=== PATIENT | female | born 1960 | race Caucasian/White ===

== ENCOUNTER 2016-12-21 13:56 | Emergency (ER) | payer OTHER ==
[~2016-12-21] VITALS: Ht 152.4 cm; Wt 52.6 kg
[~2016-12-21 13:56] MED LIST: IBAN150T4 PO; LORA1TAB PO; PRO40 PO
[2016-12-21 14:01] VITALS: BP_SYST 110
[2016-12-21 15:26] LABS: BASOPHILS # (AUTO) 0.1 K/uL (0.0-0.2); BASOPHILS % (AUTO) 0.8 % (0.0-2.0); EOSINOPHILS # (AUTO) 0.1 K/uL (0.0-0.4); EOSINOPHILS % (AUTO) 0.7 % (0.0-4.0); HEMATOCRIT 43.6 % (36-48); HEMOGLOBIN 14.3 g/dL (12.0-16.0); LYMPHOCYTES # (AUTO) 2.1 K/uL (1.0-5.5); LYMPHOCYTES % (AUTO) 20.2 % (20.5-51.5); MEAN CORPUSCULAR HEMOGLOBIN 27 pg (27-31); MEAN CORPUSCULAR HGB CONC 33 % (32-36); MEAN CORPUSCULAR VOLUME 83 fL (79.0-98.0); MONOCYTES # (AUTO) 0.3 K/uL (0.0-1.0); MONOCYTES % (AUTO) 3.1 % (1.7-9.3); NEUTROPHILS # (AUTO) 7.9 K/uL (1.8-7.7); NEUTROPHILS % (AUTO) 75.2 % (40.0-70.0); PLATELET COUNT (AUTO) 334 K/uL (130-430); RED BLOOD CELL COUNT(AUTO) 5.27 MIL/uL (4.2-6.2); RED CELL DISTRIBUTION WIDTH 12.4 % (9.0-15.0); WHITE BLOOD COUNT (AUTO) 10.5 K/uL (4.8-10.8)
[2016-12-21 15:31] LABS: CALCIUM 8.4 mg/dL (8.4-11.0); CREATININE 0.7 mg/dL (0.55-1.30); POTASSIUM 3.6 mmol/L (3.5-5.1)
[2016-12-21 15:33] LABS: PROTHROMBIN TIME 11.2 SECS (9.5-12.5)
[2016-12-21 15:36] LABS: ALBUMIN 3.8 g/dL (3.4-4.8); TOTAL BILIRUBIN 0.3 mg/dL (0.0-1.0); TOTAL PROTEIN, SERUM 7.3 g/dL (6.4-8.3)
[2016-12-21] MEDS ORDERED: KETOROLAC TROMETHAMINE 30 MG VIAL IM ONE (16:15)
[2016-12-21 16:50] VITALS: BP_SYST 110
== END 2016-12-21 16:50 | disposition home or self-care (01) ==
LOC: SED 13:56
DX: S83.91XA Sprain of unspecified site of right knee, initial encounter (principal); S50.01XA Contusion of right elbow, initial encounter; S09.90XA Unspecified injury of head, initial encounter; E11.9 Type 2 diabetes mellitus without complications; Z87.442 Personal history of urinary calculi; Z91.040 Latex allergy status; Z88.1 Allergy status to other antibiotic agents; Z88.8 Allergy status to other drugs, medicaments and biological substances; W10.8XXA Fall (on) (from) other stairs and steps, initial encounter; Y93.01 Activity, walking, marching and hiking; Y92.89 Other specified places as the place of occurrence of the external cause; Y99.8 Other external cause status
CPT/HCPCS: 36415; 70450; 73080; 73560; 80053; 85025; 85610; 85730; 96372; 99285; J1885

== ENCOUNTER 2022-04-09 22:18 | Inpatient (IN) | payer OTHER ==
[~2022-04-09] VITALS: Ht 152.4 cm; Wt 55.8 kg
[~2022-04-09 22:18] MED LIST changes: +IBAN150T16 PO; -IBAN150T4 PO
[2022-04-09 22:28] VITALS: BP_SYST 118
[2022-04-10 00:34] LABS: BASOPHILS # (AUTO) 0.2 K/uL (0.0-0.2); EOSINOPHILS % (AUTO) 0.2 % (0.0-4.0); HEMATOCRIT 39.5 % (36-48); HEMOGLOBIN 13.5 g/dL (12.0-16.0); LYMPHOCYTES # (AUTO) 0.6 K/uL (1.0-5.5); LYMPHOCYTES % (AUTO) 3.6 % (20.5-51.5); MEAN CORPUSCULAR HEMOGLOBIN 29 pg (27-31); MEAN CORPUSCULAR HGB CONC 34 % (32-36); MEAN CORPUSCULAR VOLUME 83 fL (79.0-98.0); MONOCYTES # (AUTO) 0.6 K/uL (0.0-1.0); MONOCYTES % (AUTO) 3.8 % (1.7-9.3); NEUTROPHILS # (AUTO) 14.2 K/uL (1.8-7.7); NEUTROPHILS % (AUTO) 91.4 % (40.0-70.0); PLATELET COUNT (AUTO) 354 K/uL (130-430); RED BLOOD CELL COUNT(AUTO) 4.73 MIL/uL (4.2-6.2); RED CELL DISTRIBUTION WIDTH 13.9 % (9.0-15.0); WHITE BLOOD COUNT (AUTO) 15.5 K/uL (4.8-10.8)
[2022-04-10 00:53] LABS: CALCIUM 8.4 mg/dL (8.4-11.0); CREATININE 0.91 mg/dL (0.55-1.30); POTASSIUM 4.3 mmol/L (3.5-5.1)
[2022-04-10 01:07] LABS: TOTAL BILIRUBIN 0.4 mg/dL (0.0-1.0)
[2022-04-10] MEDS ORDERED: NACL 0.9% 1,000 ML IV ONE (02:15)
[2022-04-10] MEDS ORDERED: MORPHINE 4 MG INJ. 4 MG/ML VIAL IVP ONE (02:15)
[2022-04-10] MEDS ORDERED: FAMOTIDINE PF 20 MG/2 ML VIAL IVP ONE (02:15)
[2022-04-10] MEDS ORDERED: ONDANSETRON HCL 4 MG/2 ML VIAL ONE (02:43)
[2022-04-10] MEDS ORDERED: ONDANSETRON HCL 4 MG/2 ML VIAL IVP ONE (02:45)
[2022-04-10] MEDS ORDERED: HYDROmorphone 1 MG/ML INJ. CARTRIDGE IVP ONE (05:30)
[2022-04-10 07:13] LABS: BILIRUBIN,URINE NEGATIVE (NEGATIVE); BLOOD, URINE NEGATIVE (NEGATIVE); CLARITY/URINE CLEAR (CLEAR); COLOR,URINE ORANGE (YELLOW); GLUCOSE,URINE NEGATIVE (NEGATIVE); KETONES,URINE 1+ (NEGATIVE); LEUKOCYTE ESTERASE ,URINE NEGATIVE (NEGATIVE); NITRITE, URINE NEGATIVE (NEGATIVE); PROTEIN URINE TRACE (NEGATIVE); UROBILINOGEN,URINE 0.2 (0.2-1.0)
[2022-04-10] MEDS: D5/0.45 NS 1,000 ML IV SCH ×2 (08:32→16:15)
[2022-04-10] MEDS ORDERED: GABA-529 PO (09:16)
[2022-04-10] MEDS ORDERED: CYCL10TA24 PO (09:16)
[2022-04-10] MEDS ORDERED: GLIP5TAB13 PO (09:16)
[2022-04-10] MEDS ORDERED: PANT20TA2 PO (09:16)
[2022-04-10] MEDS ORDERED: iohexoL 350 mgI/mL, 100 ML INFUS..BTL IV ONE (09:28)
[2022-04-10] MEDS ORDERED: POLYETHYLENE GLYCOL 3350, 17 GM/ POWD.PACK PO ONE (10:30)
[2022-04-10] MEDS ORDERED: ACETAMINOPHEN 325 MG TABLET PO PRN (10:45)
[2022-04-10] MEDS ORDERED: LORazepam 1 MG TABLET PO PRN (10:45)
[2022-04-10] MEDS ORDERED: NALOXONE HCL 0.4 MG/ML AMP (NARCAN) IVP PRN ×2 (10:45)
[2022-04-10] MEDS ORDERED: ONDANSETRON HCL 4 MG/2 ML VIAL IVP PRN (10:45)
[2022-04-10 11:10] VITALS: BP_SYST 136
[2022-04-10] MEDS: HYDROcodone/ACETAMIN 10-325 MG TAB PO PRN ×2 (11:47→15:35)
[2022-04-10 12:00] VITALS: BP_SYST 130
[2022-04-10] MEDS: GABAPENTIN 300 MG CAPSULE PO SCH ×2 (15:10→20:34)
[2022-04-10 16:34] VITALS: BP_SYST 116
[2022-04-10 20:00] VITALS: BP_SYST 108
[2022-04-10] MEDS: CYCLOBENZAPRINE HCL 10 MG TABLET (FLEXERIL) PO SCH (20:34)
[2022-04-10] MEDS: POLYETHYLENE GLYCOL 3350, 17 GM/ POWD.PACK PO SCH (20:35)
[2022-04-11] VITALS: BP_SYST 96
[2022-04-11] MEDS: D5/0.45 NS 1,000 ML IV SCH ×3 (01:15→22:15)
[2022-04-11 05:13] LABS: BASOPHILS % (AUTO) 0.3 % (0.0-2.0); EOSINOPHILS # (AUTO) 0.1 K/uL (0.0-0.4); EOSINOPHILS % (AUTO) 1.4 % (0.0-4.0); HEMATOCRIT 33.8 % (36-48); HEMOGLOBIN 11.8 g/dL (12.0-16.0); LYMPHOCYTES # (AUTO) 1.4 K/uL (1.0-5.5); LYMPHOCYTES % (AUTO) 13.4 % (20.5-51.5); MEAN CORPUSCULAR HEMOGLOBIN 29 pg (27-31); MEAN CORPUSCULAR HGB CONC 35 % (32-36); MEAN CORPUSCULAR VOLUME 83 fL (79.0-98.0); MONOCYTES # (AUTO) 0.6 K/uL (0.0-1.0); MONOCYTES % (AUTO) 6.1 % (1.7-9.3); NEUTROPHILS % (AUTO) 78.8 % (40.0-70.0); PLATELET COUNT (AUTO) 264 K/uL (130-430); RED BLOOD CELL COUNT(AUTO) 4.06 MIL/uL (4.2-6.2); RED CELL DISTRIBUTION WIDTH 13.6 % (9.0-15.0); WHITE BLOOD COUNT (AUTO) 10.1 K/uL (4.8-10.8)
[2022-04-11 07:00] VITALS: BP_SYST 116
[2022-04-11 08:00] VITALS: BP_SYST 132
[2022-04-11 08:21] LABS: CALCIUM 7.9 mg/dL (8.4-11.0); CREATININE 0.49 mg/dL (0.55-1.30); POTASSIUM 3.6 mmol/L (3.5-5.1)
[2022-04-11] MEDS: POLYETHYLENE GLYCOL 3350, 17 GM/ POWD.PACK PO SCH ×2 (08:33→20:38)
[2022-04-11] MEDS: PANTOPRAZOLE SODIUM 40 MG TAB PO SCH (08:34)
[2022-04-11] MEDS: CYCLOBENZAPRINE HCL 10 MG TABLET (FLEXERIL) PO SCH ×2 (08:34→20:38)
[2022-04-11] MEDS: GABAPENTIN 300 MG CAPSULE PO SCH ×3 (08:35→20:38)
[2022-04-11] MEDS: HYDROcodone/ACETAMIN 10-325 MG TAB PO PRN ×3 (08:37→20:39)
[2022-04-11] MEDS: cefTRIAXone 1 GM in D5W 50 ML IV SCH (11:40)
[2022-04-11] MEDS: INSULIN REGULAR, HUMAN 100 UNITS/ML, 10 ML VIAL (humuLIN R) SUBCUT PRN ×2 (11:41→12:25)
[2022-04-11 12:17] VITALS: BP_SYST 105
[2022-04-11] MEDS ORDERED: MAGNESIUM CITRATE 300 ML ORAL SOLUTION PO ONE (16:30)
[2022-04-11 16:31] VITALS: BP_SYST 108
[2022-04-12 00:01] VITALS: BP_SYST 136
[2022-04-12] MEDS: HYDROcodone/ACETAMIN 10-325 MG TAB PO PRN ×4 (01:46→18:52)
[2022-04-12 04:22] LABS: BASOPHILS % (AUTO) 0.9 % (0.0-2.0); EOSINOPHILS # (AUTO) 0.1 K/uL (0.0-0.4); EOSINOPHILS % (AUTO) 2.2 % (0.0-4.0); HEMATOCRIT 32.4 % (36-48); HEMOGLOBIN 11.1 g/dL (12.0-16.0); LYMPHOCYTES % (AUTO) 23.1 % (20.5-51.5); MEAN CORPUSCULAR HEMOGLOBIN 29 pg (27-31); MEAN CORPUSCULAR HGB CONC 34 % (32-36); MEAN CORPUSCULAR VOLUME 83 fL (79.0-98.0); MONOCYTES # (AUTO) 0.4 K/uL (0.0-1.0); MONOCYTES % (AUTO) 8.5 % (1.7-9.3); NEUTROPHILS # (AUTO) 2.8 K/uL (1.8-7.7); NEUTROPHILS % (AUTO) 65.3 % (40.0-70.0); PLATELET COUNT (AUTO) 242 K/uL (130-430); RED BLOOD CELL COUNT(AUTO) 3.88 MIL/uL (4.2-6.2); RED CELL DISTRIBUTION WIDTH 13.5 % (9.0-15.0); WHITE BLOOD COUNT (AUTO) 4.3 K/uL (4.8-10.8)
[2022-04-12 04:49] LABS: C-REACTIVE PROTEIN QUANT 8.4 mg/dL (0-0.5); CALCIUM 7.5 mg/dL (8.4-11.0); CREATININE 0.49 mg/dL (0.55-1.30)
[2022-04-12 05:02] LABS: POTASSIUM 2.9 mmol/L (3.5-5.1)
[2022-04-12] MEDS ORDERED: POTASSIUM CHLORIDE 20 MEQ TAB.PRT.SR PO ONE ×2 (05:45→18:45)
[2022-04-12] MEDS ORDERED: CALCIUM GLUCONATE 500 MG TAB Non-Formulary PO ONE (05:45)
[2022-04-12 06:03] LABS: ERYTHROCYTE SEDIMENTATION RATE 63 MM/HR (0-20)
[2022-04-12 07:00] VITALS: BP_SYST 117
[2022-04-12 08:00] VITALS: BP_SYST 117
[2022-04-12] MEDS: D5/0.45 NS 1,000 ML IV SCH ×2 (08:15→21:11)
[2022-04-12] MEDS: GABAPENTIN 300 MG CAPSULE PO SCH ×3 (08:41→21:10)
[2022-04-12] MEDS: CYCLOBENZAPRINE HCL 10 MG TABLET (FLEXERIL) PO SCH ×2 (08:41→21:10)
[2022-04-12] MEDS: POLYETHYLENE GLYCOL 3350, 17 GM/ POWD.PACK PO SCH ×2 (08:41→21:09)
[2022-04-12] MEDS: PANTOPRAZOLE SODIUM 40 MG TAB PO SCH (08:41)
[2022-04-12 12:00] VITALS: BP_SYST 111
[2022-04-12] MEDS ORDERED: BISACODYL 5 MG TABLET.DR (DULCOLAX) PO ONE (12:00)
[2022-04-12] MEDS ORDERED: CALCIUM 500 MG/TAB PO ONE (12:00)
[2022-04-12] MEDS: INSULIN REGULAR, HUMAN 100 UNITS/ML, 10 ML VIAL (humuLIN R) SUBCUT PRN ×2 (12:07→21:17)
[2022-04-12] MEDS ORDERED: GOLYTELY / COLYTE SOLUTION 4 LITERS PO ONE (13:00)
[2022-04-12] MEDS: cefTRIAXone 1 GM in D5W 50 ML IV SCH (13:45)
[2022-04-12 16:15] VITALS: BP_SYST 107
[2022-04-12] MEDS ORDERED: MAGNESIUM CITRATE 300 ML ORAL SOLUTION PO ONE (19:00)
[2022-04-12 20:00] VITALS: BP_SYST 125
[2022-04-12] MEDS: HYDROcodone/ACETAMIN 5-325 MG TAB (NORCO/ VICODIN) PO PRN (21:10)
[2022-04-13] VITALS: BP_SYST 113
[2022-04-13] MEDS: HYDROcodone/ACETAMIN 10-325 MG TAB PO PRN ×3 (01:32→17:05)
[2022-04-13] MEDS: D5/0.45 NS 1,000 ML IV SCH (05:26)
[2022-04-13] MEDS: HYDROcodone/ACETAMIN 5-325 MG TAB (NORCO/ VICODIN) PO PRN ×2 (05:59→21:28)
[2022-04-13] MEDS ORDERED: SIMETHICONE 40 MG/0.6 ML ML ONE (07:09)
[2022-04-13] MEDS ORDERED: MEPERIDINE 100 MG INJ. 100 MG/ML VIAL ONE (07:10)
[2022-04-13 07:26] LABS: BASOPHILS % (AUTO) 0.4 % (0.0-2.0); EOSINOPHILS # (AUTO) 0.3 K/uL (0.0-0.4); EOSINOPHILS % (AUTO) 6.2 % (0.0-4.0); HEMATOCRIT 36.9 % (36-48); HEMOGLOBIN 12.4 g/dL (12.0-16.0); LYMPHOCYTES # (AUTO) 1.6 K/uL (1.0-5.5); LYMPHOCYTES % (AUTO) 33.5 % (20.5-51.5); MEAN CORPUSCULAR HEMOGLOBIN 29 pg (27-31); MEAN CORPUSCULAR HGB CONC 34 % (32-36); MEAN CORPUSCULAR VOLUME 85 fL (79.0-98.0); MONOCYTES # (AUTO) 0.4 K/uL (0.0-1.0); MONOCYTES % (AUTO) 9.1 % (1.7-9.3); NEUTROPHILS # (AUTO) 2.4 K/uL (1.8-7.7); NEUTROPHILS % (AUTO) 50.8 % (40.0-70.0); PLATELET COUNT (AUTO) 326 K/uL (130-430); RED BLOOD CELL COUNT(AUTO) 4.34 MIL/uL (4.2-6.2); RED CELL DISTRIBUTION WIDTH 13.9 % (9.0-15.0); WHITE BLOOD COUNT (AUTO) 4.8 K/uL (4.8-10.8)
[2022-04-13 07:47] LABS: PROTHROMBIN TIME 10.1 SECS (9.5-12.5)
[2022-04-13 07:55] VITALS: BP_SYST 108
[2022-04-13 08:27] LABS: ALBUMIN 2.4 g/dL (3.4-4.8); C-REACTIVE PROTEIN QUANT 4.6 mg/dL (0-0.5); CALCIUM 7.8 mg/dL (8.4-11.0); CREATININE 0.55 mg/dL (0.55-1.30); POTASSIUM 4.1 mmol/L (3.5-5.1)
[2022-04-13] MEDS ORDERED: GABAPENTIN 100 MG CAPSULE ONE ×2 (08:43→08:55)
[2022-04-13] MEDS: CYCLOBENZAPRINE HCL 10 MG TABLET (FLEXERIL) PO SCH ×2 (08:45→19:59)
[2022-04-13] MEDS: PANTOPRAZOLE SODIUM 40 MG TAB PO SCH (08:45)
[2022-04-13] MEDS: GABAPENTIN 300 MG CAPSULE PO SCH ×3 (08:52→19:59)
[2022-04-13 09:33] LABS: TOTAL BILIRUBIN 0.1 mg/dL (0.0-1.0)
[2022-04-13] MEDS: INSULIN REGULAR, HUMAN 100 UNITS/ML, 10 ML VIAL (humuLIN R) SUBCUT PRN (11:57)
[2022-04-13 12:00] VITALS: BP_SYST 119
[2022-04-13 12:24] LABS: ERYTHROCYTE SEDIMENTATION RATE 63 MM/HR (0-20)
[2022-04-13] MEDS: MIDAZOLAM HCL 5 MG/5 ML VIAL ONE ×3 (15:14→15:21)
[2022-04-13 16:00] VITALS: BP_SYST 127
[2022-04-13 17:00] VITALS: BP_SYST 127
[2022-04-13] MEDS: POLYETHYLENE GLYCOL 3350, 17 GM/ POWD.PACK PO SCH ×2 (19:59→20:04)
[2022-04-13 20:00] VITALS: BP_SYST 125
[2022-04-14] VITALS: BP_SYST 122
[2022-04-14] MEDS: HYDROcodone/ACETAMIN 10-325 MG TAB PO PRN ×3 (00:35→11:50)
[2022-04-14] MEDS: D5/0.45 NS 1,000 ML IV SCH ×2 (00:43→10:15)
[2022-04-14 06:43] LABS: BASOPHILS % (AUTO) 0.6 % (0.0-2.0); EOSINOPHILS # (AUTO) 0.4 K/uL (0.0-0.4); HEMOGLOBIN 11.2 g/dL (12.0-16.0); LYMPHOCYTES # (AUTO) 1.7 K/uL (1.0-5.5); LYMPHOCYTES % (AUTO) 32.9 % (20.5-51.5); MEAN CORPUSCULAR HEMOGLOBIN 28 pg (27-31); MEAN CORPUSCULAR HGB CONC 34 % (32-36); MEAN CORPUSCULAR VOLUME 83 fL (79.0-98.0); MONOCYTES # (AUTO) 0.3 K/uL (0.0-1.0); MONOCYTES % (AUTO) 6.7 % (1.7-9.3); NEUTROPHILS # (AUTO) 2.7 K/uL (1.8-7.7); NEUTROPHILS % (AUTO) 52.8 % (40.0-70.0); PLATELET COUNT (AUTO) 296 K/uL (130-430); RED BLOOD CELL COUNT(AUTO) 3.97 MIL/uL (4.2-6.2); RED CELL DISTRIBUTION WIDTH 13.7 % (9.0-15.0); WHITE BLOOD COUNT (AUTO) 5.1 K/uL (4.8-10.8)
[2022-04-14 06:49] LABS: CALCIUM 7.7 mg/dL (8.4-11.0); CREATININE 0.5 mg/dL (0.55-1.30); POTASSIUM 3.7 mmol/L (3.5-5.1)
[2022-04-14] MEDS: CYCLOBENZAPRINE HCL 10 MG TABLET (FLEXERIL) PO SCH (09:00)
[2022-04-14] MEDS: POLYETHYLENE GLYCOL 3350, 17 GM/ POWD.PACK PO SCH (09:00)
[2022-04-14] MEDS ORDERED: iohexoL 350 mgI/mL, 100 ML INFUS..BTL IV ONE (09:20)
[2022-04-14] MEDS ORDERED: POLY17PO4 PO (10:29)
[2022-04-14] MEDS ORDERED: PRO40 PO (10:29)
[2022-04-14] MEDS: GABAPENTIN 300 MG CAPSULE PO SCH (11:48)
[2022-04-14] MEDS: PANTOPRAZOLE SODIUM 40 MG TAB PO SCH (11:48)
[2022-04-14 11:52] VITALS: BP_SYST 115
[2022-04-14 13:16] VITALS: BP_SYST 134
[2022-04-14 18:00] VITALS: BP_SYST 132
== END 2022-04-14 13:50 | disposition home health service (06) | DRG 380 ==
LOC: SED 22:18 → SMU 04-10 06:10
PROVIDERS: ADMIT Preventive Medicine Preventive Medicine/Occupational Environmental Medicine; ATTEND Preventive Medicine Preventive Medicine/Occupational Environmental Medicine
PROC: 0DB68ZX Excision of Stomach, Via Natural or Artificial Opening Endoscopic, Diagnostic (ICD-10-PCS; principal; 2022-04-13 08:00)
PROC: 0DJD8ZZ Inspection of Lower Intestinal Tract, Via Natural or Artificial Opening Endoscopic (ICD-10-PCS; 2022-04-13 08:00)
DX: K28.9 Gastrojejunal ulcer, unspecified as acute or chronic, without hemorrhage or perforation (principal); J69.0 Pneumonitis due to inhalation of food and vomit; D72.829 Elevated white blood cell count, unspecified; E88.09 Other disorders of plasma-protein metabolism, not elsewhere classified; M79.7 Fibromyalgia; M81.0 Age-related osteoporosis without current pathological fracture; K21.9 Gastro-esophageal reflux disease without esophagitis; F41.9 Anxiety disorder, unspecified; K59.00 Constipation, unspecified; Z20.822 Contact with and (suspected) exposure to COVID-19; E11.65 Type 2 diabetes mellitus with hyperglycemia; R74.01 Elevation of levels of liver transaminase levels; K29.70 Gastritis, unspecified, without bleeding; E83.52 Hypercalcemia; D64.9 Anemia, unspecified; K64.8 Other hemorrhoids; K44.9 Diaphragmatic hernia without obstruction or gangrene; K57.30 Diverticulosis of large intestine without perforation or abscess without bleeding; Z87.442 Personal history of urinary calculi; Z98.84 Bariatric surgery status; Z90.49 Acquired absence of other specified parts of digestive tract; Z88.8 Allergy status to other drugs, medicaments and biological substances; Z91.040 Latex allergy status
CPT/HCPCS: 36415; 43239; 45378; 71045; 74175; 76376; 80048; 80053; 81003; 82962; 83690; 85025; 85610-TC; 85651-TC; 85730-TC; 86140; 87040; 87086; 88305; 88312; 88313; 93005; 96374; 96375; 99285; J0696; J1170; J1815; J2175; J2250; J2270; J2405; J3490; J7060; Q9967

== ENCOUNTER 2022-07-02 17:15 | Inpatient (IN) | payer OTHER ==
[~2022-07-02] VITALS: Ht 152.4 cm; Wt 54.0 kg
[~2022-07-02 17:15] MED LIST changes: +CYCL10TA24 PO; +GABA-529 PO; +GLIP5TAB13 PO; +POLY17PO4 PO
[2022-07-02 17:36] VITALS: BP_SYST 142
[2022-07-02 20:44] LABS: BASOPHILS # (AUTO) 0.1 K/uL (0.0-0.2); BASOPHILS % (AUTO) 0.5 % (0.0-2.0); EOSINOPHILS # (AUTO) 0.1 K/uL (0.0-0.4); EOSINOPHILS % (AUTO) 0.8 % (0.0-4.0); HEMATOCRIT 40.1 % (36-48); HEMOGLOBIN 13.6 g/dL (12.0-16.0); LYMPHOCYTES # (AUTO) 2.4 K/uL (1.0-5.5); LYMPHOCYTES % (AUTO) 20.6 % (20.5-51.5); MEAN CORPUSCULAR HEMOGLOBIN 28 pg (27-31); MEAN CORPUSCULAR HGB CONC 34 % (32-36); MEAN CORPUSCULAR VOLUME 83 fL (79.0-98.0); MONOCYTES # (AUTO) 0.7 K/uL (0.0-1.0); MONOCYTES % (AUTO) 6.1 % (1.7-9.3); NEUTROPHILS # (AUTO) 8.3 K/uL (1.8-7.7); PLATELET COUNT (AUTO) 257 K/uL (130-430); RED BLOOD CELL COUNT(AUTO) 4.83 MIL/uL (4.2-6.2); RED CELL DISTRIBUTION WIDTH 15.9 % (9.0-15.0); WHITE BLOOD COUNT (AUTO) 11.6 K/uL (4.8-10.8)
[2022-07-02 20:58] LABS: CALCIUM 8.3 mg/dL (8.4-11.0); CREATININE 0.79 mg/dL (0.55-1.30); POTASSIUM 3.4 mmol/L (3.5-5.1)
[2022-07-02 21:05] LABS: ALBUMIN 2.6 g/dL (3.4-4.8); TOTAL BILIRUBIN 0.5 mg/dL (0.0-1.0)
[2022-07-02] MEDS ORDERED: MORPHINE 4 MG INJ. 4 MG/ML VIAL IVP ONE (21:45)
[2022-07-02] MEDS ORDERED: KETOROLAC TROMETHAMINE 15 MG VIAL IVP ONE (21:45)
[2022-07-02] MEDS ORDERED: AMPICILLIN SODIUM/SULBACTAM NA 3 GM in NS 100 ML IV ONE (21:45)
[2022-07-02] MEDS ORDERED: AMPICILLIN SODIUM/SULBACTAM NA 3 GM VIAL ONE (22:47)
[2022-07-03] MEDS ORDERED: ACETAMINOPHEN 325 MG TABLET PO PRN (00:30)
[2022-07-03] MEDS ORDERED: CYAN50009 PO (01:34)
[2022-07-03] MEDS ORDERED: PRO40 PO (01:34)
[2022-07-03] MEDS ORDERED: PEDI1TAB PO (01:34)
[2022-07-03] MEDS ORDERED: OXYC10TA56 PO (01:34)
[2022-07-03] MEDS ORDERED: PSYL0.5245 PO (01:34)
[2022-07-03] MEDS ORDERED: VITD2000 PO (01:34)
[2022-07-03] MEDS ORDERED: FLAX100032 PO (01:34)
[2022-07-03] MEDS ORDERED: LORA-258 PO (01:34)
[2022-07-03] MEDS ORDERED: MECL-225 PO (01:34)
[2022-07-03 02:51] VITALS: BP_SYST 123
[2022-07-03] MEDS ORDERED: AMPICILLIN SODIUM/SULBACTAM NA 3 GM in NS 100 ML IV SCH (06:00)
[2022-07-03] MEDS ORDERED: AMPICILLIN /SULBACTAM NA 3 GM in NORMAL SALINE 100 ML IV ONE (06:45)
[2022-07-03 08:13] VITALS: BP_SYST 105
[2022-07-03] MEDS ORDERED: MECLIZINE HCL 25 MG TABLET (ANITVERT) PO PRN (10:45)
[2022-07-03] MEDS ORDERED: PSYLLIUM HUSK 1 PKT PACKET PO ONE (10:45)
[2022-07-03] MEDS ORDERED: [UNRECOGNIZED DRUG - OTHER] PO SCH (10:45)
[2022-07-03] MEDS ORDERED: FLAXSEED OIL 1000 MG PO SCH (10:45)
[2022-07-03] MEDS ORDERED: CYCLOBENZAPRINE HCL 10 MG TABLET (FLEXERIL) PO PRN (10:45)
[2022-07-03] MEDS ORDERED: PANTOPRAZOLE SODIUM 40 MG TAB PO SCH ×2 (10:45→21:00)
[2022-07-03] MEDS ORDERED: LORazepam 1 MG TABLET PO PRN (10:45)
[2022-07-03] MEDS ORDERED: CHOLECALCIFEROL (VITAMIN D3) 2,000 UNIT TABLET PO ONE (10:45)
[2022-07-03] MEDS ORDERED: GABAPENTIN 100 MG CAPSULE PO ONE (10:45)
[2022-07-03] MEDS ORDERED: oxyCODONE HCL 10 MG TAB.ER.12H PO SCH (10:45)
[2022-07-03] MEDS ORDERED: CYANOCOBALAMIN 1000 mCg TABLET PO ONE (10:57)
[2022-07-03] MEDS ORDERED: PANTOPRAZOLE SODIUM 40 MG TAB PO ONE (11:15)
[2022-07-03] MEDS: oxyCODONE HCL 5 MG TABLET PO SCH ×2 (11:38→17:23)
[2022-07-03] MEDS: AMPICILLIN /SULBACTAM NA 3 GM in NORMAL SALINE 100 ML IV SCH ×2 (11:59→17:06)
[2022-07-03 12:00] VITALS: BP_SYST 113
[2022-07-03] MEDS ORDERED: GABAPENTIN 100 MG CAPSULE PO SCH (15:00)
[2022-07-03] MEDS ORDERED: AUG875 PO (15:56)
[2022-07-03 17:16] VITALS: BP_SYST 125
[2022-07-03 18:59] VITALS: BP_SYST 125
[2022-07-04] MEDS ORDERED: PSYLLIUM HUSK 1 PKT PACKET PO SCH (09:00)
[2022-07-04] MEDS ORDERED: CYANOCOBALAMIN 1000 mCg TABLET PO SCH (09:00)
[2022-07-04] MEDS ORDERED: CHOLECALCIFEROL (VITAMIN D3) 2,000 UNIT TABLET PO SCH (09:00)
== END 2022-07-03 19:45 | disposition home or self-care (01) | DRG 602 ==
LOC: SED 17:15 → SMU 07-03 00:21
PROVIDERS: ADMIT Internal Medicine; ATTEND Internal Medicine
DX: L03.113 Cellulitis of right upper limb (principal); E43 Unspecified severe protein-calorie malnutrition; E87.1 Hypo-osmolality and hyponatremia; Z20.822 Contact with and (suspected) exposure to COVID-19; M81.0 Age-related osteoporosis without current pathological fracture; M79.7 Fibromyalgia; E11.9 Type 2 diabetes mellitus without complications; E87.6 Hypokalemia; Z88.2 Allergy status to sulfonamides; Z88.8 Allergy status to other drugs, medicaments and biological substances; Z88.1 Allergy status to other antibiotic agents; Z91.040 Latex allergy status; Z87.442 Personal history of urinary calculi; Z79.891 Long term (current) use of opiate analgesic; Z79.899 Other long term (current) drug therapy; W55.01XA Bitten by cat, initial encounter; Y93.89 Activity, other specified; Y92.89 Other specified places as the place of occurrence of the external cause; Y99.8 Other external cause status
CPT/HCPCS: 36415; 80053; 85025; 96365; 96375; 99285; J0295; J1885; J2270

== ENCOUNTER 2023-07-22 21:13 | Inpatient (IN) | payer OTHER ==
[~2023-07-22] VITALS: Ht 152.4 cm; Wt 43.5 kg
[~2023-07-22 21:13] MED LIST changes: +AUG875 PO; +CYAN50009 PO; +FLAX100032 PO; -IBAN150T16 PO; +LORA-258 PO; -LORA1TAB PO; +MECL-225 PO; +OXYC10TA56 PO; +PEDI1TAB PO; -POLY17PO4 PO; +PSYL0.5245 PO; +VITD2000 PO
[2023-07-22 21:20] VITALS: BP_SYST 124; PULSE 61; RESP 19; TEMP 97.9; O2SAT 97
[2023-07-22 23:01] LABS: BASOPHILS # (AUTO) 0.1 K/uL (0.0-0.2); BASOPHILS % (AUTO) 0.7 % (0.0-2.0); EOSINOPHILS % (AUTO) 0.1 % (0.0-4.0); HEMATOCRIT 37.9 % (36-48); HEMOGLOBIN 12.2 g/dL (12.0-16.0); LYMPHOCYTES # (AUTO) 1.3 K/uL (1.0-5.5); MEAN CORPUSCULAR HEMOGLOBIN 30 pg (27-31); MEAN CORPUSCULAR HGB CONC 32 % (32-36); MEAN CORPUSCULAR VOLUME 92 fL (79.0-98.0); MONOCYTES % (AUTO) 8.2 % (1.7-9.3); NEUTROPHILS # (AUTO) 9.5 K/uL (1.8-7.7); PLATELET COUNT (AUTO) 358 K/uL (130-430); RED BLOOD CELL COUNT(AUTO) 4.14 MIL/uL (4.2-6.2); RED CELL DISTRIBUTION WIDTH 16.2 % (9.0-15.0); WHITE BLOOD COUNT (AUTO) 11.9 K/uL (4.8-10.8)
[2023-07-22 23:19] LABS: CALCIUM 8.6 mg/dL (8.4-11.0); CREATININE 1.43 mg/dL (0.55-1.30); POTASSIUM 3.4 mmol/L (3.5-5.1)
[2023-07-22 23:34] LABS: ALBUMIN 2.3 g/dL (3.4-4.8); TOTAL BILIRUBIN 3.5 mg/dL (0.0-1.0); TOTAL PROTEIN, SERUM 5.3 g/dL (6.4-8.3)
[2023-07-23] MEDS ORDERED: DICY10SO PO (03:36)
[2023-07-23] MEDS ORDERED: DICL100G60 TP (03:36)
[2023-07-23] MEDS ORDERED: IBUP-1970 PO (03:36)
[2023-07-23] MEDS ORDERED: ONDA-8 TL (03:36)
[2023-07-23] MEDS ORDERED: cefTRIAXone 1 GM IVPB PREMIX 50 ML IV ONE (04:00)
[2023-07-23 05:58] LABS: BILIRUBIN,URINE 1+ (NEGATIVE); BLOOD, URINE 2+ (NEGATIVE); CLARITY/URINE CLOUDY (CLEAR); COLOR,URINE YELLOW (YELLOW); GLUCOSE,URINE NEGATIVE (NEGATIVE); KETONES,URINE NEGATIVE (NEGATIVE); LEUKOCYTE ESTERASE ,URINE 3+ (NEGATIVE); NITRITE, URINE NEGATIVE (NEGATIVE); PROTEIN URINE NEGATIVE (NEGATIVE)
[2023-07-23 06:17] LABS: BACTERIA,URINE MANY /HPF (None Seen); WBC,URINE 80-100 /HPF (0-3)
[2023-07-23 08:30] VITALS: BP_SYST 96; PULSE 99; RESP 19; TEMP 96.8; O2SAT 99
[2023-07-23] MEDS ORDERED: INSULIN REGULAR, HUMAN 100 UNITS/ML, 3 ML VIAL (humuLIN R) SUBCUT PRN (10:15)
[2023-07-23] MEDS ORDERED: DEXTROSE 50% JECT 50 ML DISP.SYRIN IVP PRN (10:15)
[2023-07-23] MEDS ORDERED: GLUCOSE (DEXTROSE) ORAL GEL -Adults PO PRN (10:15)
[2023-07-23 10:36] LABS: BASOPHILS % (AUTO) 0.4 % (0.0-2.0); EOSINOPHILS % (AUTO) 0.5 % (0.0-4.0); HEMATOCRIT 35.7 % (36-48); HEMOGLOBIN 11.7 g/dL (12.0-16.0); LYMPHOCYTES # (AUTO) 1.2 K/uL (1.0-5.5); LYMPHOCYTES % (AUTO) 14.8 % (20.5-51.5); MEAN CORPUSCULAR HEMOGLOBIN 30 pg (27-31); MEAN CORPUSCULAR HGB CONC 33 % (32-36); MEAN CORPUSCULAR VOLUME 90 fL (79.0-98.0); MONOCYTES # (AUTO) 0.3 K/uL (0.0-1.0); MONOCYTES % (AUTO) 4.1 % (1.7-9.3); NEUTROPHILS # (AUTO) 6.4 K/uL (1.8-7.7); NEUTROPHILS % (AUTO) 80.2 % (40.0-70.0); PLATELET COUNT (AUTO) 298 K/uL (130-430); RED BLOOD CELL COUNT(AUTO) 3.95 MIL/uL (4.2-6.2); RED CELL DISTRIBUTION WIDTH 15.9 % (9.0-15.0)
[2023-07-23 10:50] LABS: HEMOGLOBIN A1C 5.35 % (<5.7)
[2023-07-23 10:53] LABS: ALBUMIN 2.1 g/dL (3.4-4.8); CALCIUM 8.3 mg/dL (8.4-11.0); POTASSIUM 4.1 mmol/L (3.5-5.1); TOTAL PROTEIN, SERUM 4.8 g/dL (6.4-8.3)
[2023-07-23] MEDS ORDERED: OXYIR5 PO (10:58)
[2023-07-23] MEDS ORDERED: GLIP2.5T3 PO (11:01)
[2023-07-23] MEDS: FUROSEMIDE 40 MG/4 ML VIAL IVP SCH ×2 (11:02→21:37)
[2023-07-23] MEDS: cefTRIAXone 1 GM IVPB PREMIX 50 ML IV SCH (11:02)
[2023-07-23] MEDS ORDERED: oxyCODONE HCL 10 MG TAB.ER.12H PO PRN (14:45)
[2023-07-23] MEDS: oxyCODONE HCL 5 MG TABLET PO PRN (15:45)
[2023-07-23 16:00] VITALS: BP_SYST 112; PULSE 109; RESP 17; TEMP 97.2; O2SAT 95
[2023-07-23] MEDS: VITAMIN B COMPLEX WITH C TAB/CAP PO SCH (20:00)
[2023-07-23 20:05] VITALS: BP_SYST 102; PULSE 102; RESP 20; TEMP 97.8; O2SAT 100
[2023-07-23] MEDS: GABAPENTIN 300 MG CAPSULE PO SCH (21:37)
[2023-07-24 00:18] VITALS: BP_SYST 112; PULSE 99; RESP 18; TEMP 97; O2SAT 98
[2023-07-24] MEDS: oxyCODONE HCL 5 MG TABLET PO PRN ×2 (06:08→10:32)
[2023-07-24 06:10] LABS: BASOPHILS % (AUTO) 0.8 % (0.0-2.0); EOSINOPHILS # (AUTO) 0.1 K/uL (0.0-0.4); EOSINOPHILS % (AUTO) 1.2 % (0.0-4.0); HEMATOCRIT 33.2 % (36-48); HEMOGLOBIN 11.1 g/dL (12.0-16.0); LYMPHOCYTES # (AUTO) 1.3 K/uL (1.0-5.5); LYMPHOCYTES % (AUTO) 25.4 % (20.5-51.5); MEAN CORPUSCULAR HEMOGLOBIN 30 pg (27-31); MEAN CORPUSCULAR HGB CONC 33 % (32-36); MEAN CORPUSCULAR VOLUME 91 fL (79.0-98.0); MONOCYTES # (AUTO) 0.4 K/uL (0.0-1.0); NEUTROPHILS # (AUTO) 3.1 K/uL (1.8-7.7); NEUTROPHILS % (AUTO) 63.6 % (40.0-70.0); PLATELET COUNT (AUTO) 261 K/uL (130-430); RED BLOOD CELL COUNT(AUTO) 3.67 MIL/uL (4.2-6.2); RED CELL DISTRIBUTION WIDTH 15.8 % (9.0-15.0); WHITE BLOOD COUNT (AUTO) 4.9 K/uL (4.8-10.8)
[2023-07-24 06:43] LABS: ALBUMIN 1.9 g/dL (3.4-4.8); CALCIUM 7.9 mg/dL (8.4-11.0); CREATININE 0.78 mg/dL (0.55-1.30); TOTAL BILIRUBIN 1.5 mg/dL (0.0-1.0); TOTAL PROTEIN, SERUM 4.4 g/dL (6.4-8.3)
[2023-07-24 06:59] LABS: POTASSIUM 2.2 mmol/L (3.5-5.1)
[2023-07-24 08:00] VITALS: BP_SYST 103; PULSE 110; RESP 18; TEMP 98.4; O2SAT 98
[2023-07-24] MEDS: CHOLECALCIFEROL (VITAMIN D3) 2,000 UNIT TABLET PO SCH (09:18)
[2023-07-24] MEDS: GABAPENTIN 300 MG CAPSULE PO SCH ×3 (09:18→20:37)
[2023-07-24] MEDS: cefTRIAXone 1 GM IVPB PREMIX 50 ML IV SCH (09:40)
[2023-07-24] MEDS: FUROSEMIDE 40 MG/4 ML VIAL IVP SCH (09:45)
[2023-07-24] MEDS ORDERED: ALBUMIN HUMAN 5% 500 ML IV ONE (10:30)
[2023-07-24] MEDS ORDERED: POTASSIUM CHLORIDE 40 MEQ in NS 250 ML IV ONE (10:30)
[2023-07-24] MEDS: VITAMIN B COMPLEX WITH C TAB/CAP PO SCH (10:32)
[2023-07-24] MEDS ORDERED: DIATR MEGLU/DIATRIZ SOD 30 ML SOLUTION PO ONE (11:35)
[2023-07-24] MEDS ORDERED: MAGNESIUM SULFATE 50 ML IV ONE (13:30)
[2023-07-24 16:00] VITALS: BP_SYST 98; PULSE 91; RESP 20; TEMP 97.6; O2SAT 98
[2023-07-24] MEDS: ALBUMIN HUMAN 25% 50 ML IV SCH ×3 (16:22→22:40)
[2023-07-24] MEDS ORDERED: POTASSIUM CHLORIDE 20 MEQ/PKT PACKET PO ONE (18:15)
[2023-07-24 19:50] VITALS: BP_SYST 93; PULSE 93; RESP 18; TEMP 97.4; O2SAT 96
[2023-07-25 00:05] VITALS: BP_SYST 100; PULSE 84; RESP 18; TEMP 98.2; O2SAT 100
[2023-07-25 07:47] LABS: ALBUMIN 2.9 g/dL (3.4-4.8); CALCIUM 7.9 mg/dL (8.4-11.0); CREATININE 0.61 mg/dL (0.55-1.30); THYROID STIMULATING HORMONE 1.04 uIu/mL (0.34-4.82); TOTAL BILIRUBIN 1.7 mg/dL (0.0-1.0); TOTAL PROTEIN, SERUM 4.6 g/dL (6.4-8.3)
[2023-07-25 07:49] LABS: BASOPHILS % (AUTO) 0.7 % (0.0-2.0); EOSINOPHILS # (AUTO) 0.1 K/uL (0.0-0.4); EOSINOPHILS % (AUTO) 1.6 % (0.0-4.0); HEMATOCRIT 27.5 % (36-48); LYMPHOCYTES # (AUTO) 0.8 K/uL (1.0-5.5); LYMPHOCYTES % (AUTO) 16.9 % (20.5-51.5); MEAN CORPUSCULAR HEMOGLOBIN 30 pg (27-31); MEAN CORPUSCULAR HGB CONC 33 % (32-36); MEAN CORPUSCULAR VOLUME 91 fL (79.0-98.0); MONOCYTES # (AUTO) 0.5 K/uL (0.0-1.0); MONOCYTES % (AUTO) 9.9 % (1.7-9.3); NEUTROPHILS # (AUTO) 3.5 K/uL (1.8-7.7); NEUTROPHILS % (AUTO) 70.9 % (40.0-70.0); PLATELET COUNT (AUTO) 255 K/uL (130-430); RED BLOOD CELL COUNT(AUTO) 3.02 MIL/uL (4.2-6.2); RED CELL DISTRIBUTION WIDTH 16.4 % (9.0-15.0); WHITE BLOOD COUNT (AUTO) 4.9 K/uL (4.8-10.8)
[2023-07-25 07:51] LABS: POTASSIUM 2.4 mmol/L (3.5-5.1)
[2023-07-25 08:00] VITALS: BP_SYST 99; PULSE 97; RESP 18; TEMP 98.2; O2SAT 98
[2023-07-25] MEDS: CHOLECALCIFEROL (VITAMIN D3) 2,000 UNIT TABLET PO SCH (08:54)
[2023-07-25] MEDS: VITAMIN B COMPLEX WITH C TAB/CAP PO SCH (08:55)
[2023-07-25] MEDS: GABAPENTIN 300 MG CAPSULE PO SCH ×3 (08:55→21:52)
[2023-07-25] MEDS: cefTRIAXone 1 GM IVPB PREMIX 50 ML IV SCH (09:06)
[2023-07-25] MEDS ORDERED: KCL 40 mEq in 100 mL (PREMIX) 100 ML IV ONE (09:45)
[2023-07-25] MEDS ORDERED: POTASSIUM CHLORIDE 20 MEQ/PKT PACKET PO ONE (10:00)
[2023-07-25] MEDS: POTASSIUM CHLORIDE 20 mEq in 100 mL (PREMIX) 100 ML x 2 doses IV SCH ×2 (11:08→13:24)
[2023-07-25 12:00] VITALS: BP_SYST 99; PULSE 90; RESP 18; TEMP 98; O2SAT 97
[2023-07-25 16:00] VITALS: BP_SYST 99; PULSE 94; RESP 18; TEMP 98; O2SAT 97
[2023-07-25 17:11] LABS: ALBUMIN 3.2 g/dL (3.4-4.8); CALCIUM 8.2 mg/dL (8.4-11.0); CREATININE 0.65 mg/dL (0.55-1.30); POTASSIUM 3.7 mmol/L (3.5-5.1); TOTAL BILIRUBIN 1.3 mg/dL (0.0-1.0); TOTAL PROTEIN, SERUM 5.2 g/dL (6.4-8.3)
[2023-07-25 20:04] VITALS: BP_SYST 102; PULSE 102; RESP 18; TEMP 97.3; O2SAT 97
[2023-07-25 20:05] VITALS: O2SAT 99
[2023-07-25] MEDS: MIRTAZAPINE 15 MG TABLET PO SCH (21:52)
[2023-07-25] MEDS: SPIRONOLACTONE 25 MG TABLET (ALDACTONE) PO SCH (21:53)
[2023-07-25] MEDS: POTASSIUM CHLORIDE 20 MEQ/PKT PACKET PO SCH (21:53)
[2023-07-25 22:16] LABS: INR 1.2 (0.8-1.2); PROTHROMBIN TIME 12.7 SECS (9.5-12.5)
[2023-07-26 01:05] VITALS: BP_SYST 100; PULSE 100; RESP 17; TEMP 98; O2SAT 97
[2023-07-26 04:21] LABS: BASOPHILS % (AUTO) 0.8 % (0.0-2.0); EOSINOPHILS # (AUTO) 0.1 K/uL (0.0-0.4); EOSINOPHILS % (AUTO) 2.2 % (0.0-4.0); HEMATOCRIT 29.1 % (36-48); HEMOGLOBIN 9.5 g/dL (12.0-16.0); LYMPHOCYTES # (AUTO) 1.9 K/uL (1.0-5.5); LYMPHOCYTES % (AUTO) 32.7 % (20.5-51.5); MEAN CORPUSCULAR HEMOGLOBIN 30 pg (27-31); MEAN CORPUSCULAR HGB CONC 33 % (32-36); MEAN CORPUSCULAR VOLUME 92 fL (79.0-98.0); MONOCYTES # (AUTO) 0.6 K/uL (0.0-1.0); MONOCYTES % (AUTO) 10.8 % (1.7-9.3); NEUTROPHILS % (AUTO) 53.5 % (40.0-70.0); PLATELET COUNT (AUTO) 257 K/uL (130-430); RED BLOOD CELL COUNT(AUTO) 3.16 MIL/uL (4.2-6.2); RED CELL DISTRIBUTION WIDTH 16.6 % (9.0-15.0); WHITE BLOOD COUNT (AUTO) 5.7 K/uL (4.8-10.8)
[2023-07-26 04:33] LABS: ALBUMIN 2.7 g/dL (3.4-4.8); CALCIUM 8.3 mg/dL (8.4-11.0); CREATININE 0.63 mg/dL (0.55-1.30); POTASSIUM 3.3 mmol/L (3.5-5.1); TOTAL BILIRUBIN 1.1 mg/dL (0.0-1.0); TOTAL PROTEIN, SERUM 4.5 g/dL (6.4-8.3)
[2023-07-26] MEDS: NACL 0.9% 1,000 ML IV SCH ×2 (07:15→13:55)
[2023-07-26] MEDS ORDERED: SIMETHICONE 40 MG/0.6 ML ML ONE (07:40)
[2023-07-26] MEDS ORDERED: MIDAZOLAM HCL 5 MG/5 ML VIAL ONE (07:40)
[2023-07-26] MEDS ORDERED: MEPERIDINE 100 MG INJ. 100 MG/ML VIAL ONE (07:40)
[2023-07-26 08:00] VITALS: BP_SYST 104; PULSE 102; RESP 18; TEMP 97.8; O2SAT 96; O2SAT 97
[2023-07-26 08:06] LABS: FOLATE (FOLIC ACID) 7.7 ng/mL (>3.0)
[2023-07-26] MEDS ORDERED: BENZOCAINE 20% 0.5mL UD SPRAY MM ONE (08:13)
[2023-07-26] MEDS: SPIRONOLACTONE 25 MG TABLET (ALDACTONE) PO SCH ×2 (09:00→21:27)
[2023-07-26] MEDS: GABAPENTIN 300 MG CAPSULE PO SCH ×3 (09:00→21:22)
[2023-07-26] MEDS: CHOLECALCIFEROL (VITAMIN D3) 2,000 UNIT TABLET PO SCH (09:00)
[2023-07-26] MEDS: POTASSIUM CHLORIDE 20 MEQ/PKT PACKET PO SCH ×2 (09:00→21:00)
[2023-07-26] MEDS: VITAMIN B COMPLEX WITH C TAB/CAP PO SCH (09:00)
[2023-07-26] MEDS: cefTRIAXone 1 GM IVPB PREMIX 50 ML IV SCH (09:44)
[2023-07-26] MEDS ORDERED: PANTOPRAZOLE SODIUM 40 MG TAB PO ONE (09:45)
[2023-07-26 17:28] VITALS: BP_SYST 100; PULSE 91; RESP 18; TEMP 98.4; O2SAT 100
[2023-07-26 19:00] VITALS: BP_SYST 104; PULSE 91; RESP 18; TEMP 98.4; O2SAT 100; O2SAT 96
[2023-07-26 20:00] VITALS: BP_SYST 107; PULSE 107; RESP 18; TEMP 98.1; O2SAT 100
[2023-07-26] MEDS: MIRTAZAPINE 15 MG TABLET PO SCH (21:26)
[2023-07-27] VITALS: BP_SYST 127; PULSE 84; RESP 16; TEMP 97.9; O2SAT 100
[2023-07-27 05:36] LABS: BASOPHILS # (AUTO) 0.1 K/uL (0.0-0.2); BASOPHILS % (AUTO) 1.2 % (0.0-2.0); EOSINOPHILS # (AUTO) 0.2 K/uL (0.0-0.4); HEMATOCRIT 28.6 % (36-48); HEMOGLOBIN 9.4 g/dL (12.0-16.0); LYMPHOCYTES # (AUTO) 2.2 K/uL (1.0-5.5); LYMPHOCYTES % (AUTO) 34.3 % (20.5-51.5); MEAN CORPUSCULAR HEMOGLOBIN 31 pg (27-31); MEAN CORPUSCULAR HGB CONC 33 % (32-36); MEAN CORPUSCULAR VOLUME 93 fL (79.0-98.0); MONOCYTES # (AUTO) 0.5 K/uL (0.0-1.0); MONOCYTES % (AUTO) 7.1 % (1.7-9.3); NEUTROPHILS # (AUTO) 3.5 K/uL (1.8-7.7); NEUTROPHILS % (AUTO) 54.4 % (40.0-70.0); PLATELET COUNT (AUTO) 262 K/uL (130-430); RED BLOOD CELL COUNT(AUTO) 3.07 MIL/uL (4.2-6.2); RED CELL DISTRIBUTION WIDTH 16.8 % (9.0-15.0); WHITE BLOOD COUNT (AUTO) 6.5 K/uL (4.8-10.8)
[2023-07-27 05:44] LABS: CALCIUM 8.1 mg/dL (8.4-11.0); CREATININE 0.56 mg/dL (0.55-1.30); POTASSIUM 3.6 mmol/L (3.5-5.1)
[2023-07-27 07:00] VITALS: O2SAT 97
[2023-07-27 09:00] VITALS: BP_SYST 107; PULSE 101; RESP 16; TEMP 97.6; O2SAT 97
[2023-07-27] MEDS ORDERED: PANTOPRAZOLE SODIUM 40 MG TAB PO SCH (09:00)
[2023-07-27] MEDS: cefTRIAXone 1 GM IVPB PREMIX 50 ML IV SCH (09:43)
[2023-07-27] MEDS: CHOLECALCIFEROL (VITAMIN D3) 2,000 UNIT TABLET PO SCH (09:45)
[2023-07-27] MEDS: GABAPENTIN 300 MG CAPSULE PO SCH (09:46)
[2023-07-27] MEDS: SPIRONOLACTONE 25 MG TABLET (ALDACTONE) PO SCH (09:46)
[2023-07-27] MEDS ORDERED: MIRT-147 PO (12:39)
[2023-07-27 15:17] VITALS: BP_SYST 114; PULSE 107; RESP 18; TEMP 97.3; O2SAT 97
[2023-07-27] MEDS ORDERED: POTASSIUM CHLORIDE 20 MEQ TABLET.ER PO SCH (21:00)
== END 2023-07-27 16:19 | disposition home or self-care (01) | DRG 682 ==
LOC: SED 21:13 → SMU 07-23 05:18
PROVIDERS: ADMIT Specialist; ATTEND Specialist
PROC: 0DB58ZX Excision of Esophagus, Via Natural or Artificial Opening Endoscopic, Diagnostic (ICD-10-PCS; 2023-07-26)
PROC: 02HV33Z Insertion of Infusion Device into Superior Vena Cava, Percutaneous Approach (ICD-10-PCS; 2023-07-26)
PROC: B548ZZA Ultrasonography of Superior Vena Cava, Guidance (ICD-10-PCS; 2023-07-26)
PROC: 0DB98ZX Excision of Duodenum, Via Natural or Artificial Opening Endoscopic, Diagnostic (ICD-10-PCS; principal; 2023-07-26 07:30)
DX: N17.9 Acute kidney failure, unspecified (principal); E43 Unspecified severe protein-calorie malnutrition; N39.0 Urinary tract infection, site not specified; Z68.1 Body mass index [BMI] 19.9 or less, adult; I25.10 Atherosclerotic heart disease of native coronary artery without angina pectoris; F32.A Depression, unspecified; E78.5 Hyperlipidemia, unspecified; M81.0 Age-related osteoporosis without current pathological fracture; K44.9 Diaphragmatic hernia without obstruction or gangrene; E86.0 Dehydration; E80.6 Other disorders of bilirubin metabolism; K14.0 Glossitis; E88.09 Other disorders of plasma-protein metabolism, not elsewhere classified; E87.6 Hypokalemia; E11.9 Type 2 diabetes mellitus without complications; E66.9 Obesity, unspecified; E83.51 Hypocalcemia; F41.9 Anxiety disorder, unspecified; F19.10 Other psychoactive substance abuse, uncomplicated; M79.7 Fibromyalgia; Z79.899 Other long term (current) drug therapy; Z90.710 Acquired absence of both cervix and uterus; Z98.84 Bariatric surgery status; Z79.1 Long term (current) use of non-steroidal anti-inflammatories (NSAID); Z88.8 Allergy status to other drugs, medicaments and biological substances; Z88.1 Allergy status to other antibiotic agents; Z91.040 Latex allergy status
CPT/HCPCS: 36415; 43239; 71045; 76376; 76700-TC; 80048; 80053; 81000; 81001; 81015; 82607; 82746; 82962; 83037; 83605; 83690; 83735; 83880; 84132; 84436; 84439; 84443; 84484; 85025; 85610-TC; 85730-TC; 87040; 87081; 87086; 88305; 88312; 88313; 97116-GP; 97530-GP; 99285; J0696; J1940; J2175; J2250; J3475; J3480; J7050; P9046; Q9964; Q9967

== ENCOUNTER 2023-08-03 23:33 | Emergency (ER) | payer OTHER ==
[~2023-08-03] VITALS: Ht 152.4 cm; Wt 49.9 kg
[~2023-08-03 23:33] MED LIST changes: -AUG875 PO; -CYAN50009 PO; +DICL100G60 TP; +DICY10SO PO; +GLIP2.5T3 PO; -GLIP5TAB13 PO; +IBUP-1970 PO; -MECL-225 PO; +MIRT-147 PO; +ONDA-8 TL; -OXYC10TA56 PO; +OXYIR5 PO; -PEDI1TAB PO; -PSYL0.5245 PO
[2023-08-03 23:45] VITALS: BP_SYST 145; PULSE 80; RESP 19; TEMP 97; O2SAT 97
== END 2023-08-03 23:55 | disposition home or self-care (01) ==
LOC: SED 23:33
DX: R60.0 Localized edema (principal); N04.9 Nephrotic syndrome with unspecified morphologic changes; E11.9 Type 2 diabetes mellitus without complications; Z88.1 Allergy status to other antibiotic agents; Z88.2 Allergy status to sulfonamides; Z88.5 Allergy status to narcotic agent; Z88.8 Allergy status to other drugs, medicaments and biological substances; Z79.899 Other long term (current) drug therapy
CPT/HCPCS: 99281

== ENCOUNTER 2023-08-09 16:49 | Inpatient (IN) | payer OTHER ==
[~2023-08-09] VITALS: Ht 152.4 cm; Wt 40.8 kg
[~2023-08-09 16:49] MED LIST changes: +NACL 0.9% 1,000 ML IV ONE
[2023-08-09 17:05] VITALS: BP_SYST 117; PULSE 122; RESP 18; TEMP 98.3; O2SAT 98
[2023-08-09 18:12] LABS: BASOPHILS % (AUTO) 0.5 % (0.0-2.0); EOSINOPHILS % (AUTO) 0.1 % (0.0-4.0); HEMATOCRIT 33.1 % (36-48); HEMOGLOBIN 11.1 g/dL (12.0-16.0); LYMPHOCYTES # (AUTO) 0.9 K/uL (1.0-5.5); LYMPHOCYTES % (AUTO) 8.7 % (20.5-51.5); MEAN CORPUSCULAR HEMOGLOBIN 32 pg (27-31); MEAN CORPUSCULAR HGB CONC 34 % (32-36); MEAN CORPUSCULAR VOLUME 96 fL (79.0-98.0); MONOCYTES # (AUTO) 0.4 K/uL (0.0-1.0); MONOCYTES % (AUTO) 4.1 % (1.7-9.3); NEUTROPHILS # (AUTO) 9.2 K/uL (1.8-7.7); NEUTROPHILS % (AUTO) 86.6 % (40.0-70.0); PLATELET COUNT (AUTO) 398 K/uL (130-430); RED BLOOD CELL COUNT(AUTO) 3.45 MIL/uL (4.2-6.2); WHITE BLOOD COUNT (AUTO) 10.6 K/uL (4.8-10.8)
[2023-08-09 18:20] LABS: ANION GAP 13 (5-15); CALCIUM 8.4 mg/dL (8.4-11.0); CARBON DIOXIDE 22 mmol/L (23-29); CHLORIDE 99 mmol/L (98-107); GFR AFRICAN AMERICAN 49 mL/min (>90); GLUCOSE 164 mg/dL (74-106); POTASSIUM 4.2 mmol/L (3.5-5.1); SODIUM SERUM 134 mmol/L (136-145); UREA NITROGEN, BLOOD 14 mg/dL (8-21)
[2023-08-09 18:34] LABS: ALANINE AMINOTRANSFERASE 57 U/L (12-78); ALBUMIN 2.8 g/dL (3.4-4.8); ASPARTATE AMINOTRANSFERASE 54 U/L (10-37); BILIRUBIN,DIRECT 2.3 mg/dL (0.0-0.3); THYROID STIMULATING HORMONE 2.78 uIu/mL (0.34-4.82); TOTAL BILIRUBIN 2.8 mg/dL (0.0-1.0); TOTAL PROTEIN, SERUM 5.2 g/dL (6.4-8.3)
[2023-08-09 18:35] LABS: GFR NON AFRICAN-AMERICAN 40 mL/min (>90)
[2023-08-09] MEDS ORDERED: GABAPENTIN 300 MG CAPSULE PO ONE (20:15)
[2023-08-09] MEDS ORDERED: HYDROcodone/ACETAMIN 5-325 MG TAB (NORCO/ VICODIN) PO ONE (20:15)
[2023-08-09] MEDS ORDERED: NACL 0.9% 1,000 ML IV ONE (20:15)
[2023-08-09] MEDS ORDERED: GABAPENTIN 100 MG CAPSULE PO ONE (20:15)
[2023-08-10 00:26] VITALS: BP_SYST 110; PULSE 99; RESP 18; TEMP 97.5; O2SAT 100
[2023-08-10] MEDS ORDERED: INSULIN REGULAR, HUMAN 100 UNITS/ML, 3 ML VIAL (humuLIN R) SUBCUT PRN (07:45)
[2023-08-10] MEDS ORDERED: DEXTROSE 50% JECT 50 ML DISP.SYRIN IVP PRN (07:45)
[2023-08-10] MEDS ORDERED: GLUCOSE (DEXTROSE) ORAL GEL -Adults PO PRN (07:45)
[2023-08-10] MEDS ORDERED: D5W 1,000 ML IV PRN (07:45)
[2023-08-10 08:20] VITALS: BP_SYST 115; PULSE 87; RESP 16; TEMP 97.6; O2SAT 98
[2023-08-10 08:40] VITALS: BP_SYST 100; PULSE 99; RESP 18; TEMP 97.6; O2SAT 100
[2023-08-10] MEDS ORDERED: HYDROcodone/ACETAMIN 5-325 MG TAB (NORCO/ VICODIN) PO PRN (10:00)
[2023-08-10] MEDS ORDERED: oxyCODONE HCL 5 MG TABLET PO PRN (10:00)
[2023-08-10] MEDS ORDERED: ONDANSETRON HCL 4 MG/2 ML VIAL IVP PRN (10:00)
[2023-08-10] MEDS ORDERED: NALOXONE HCL 0.4 MG/ML AMP (NARCAN) IVP PRN ×2 (10:00)
[2023-08-10] MEDS ORDERED: LORazepam 1 MG TABLET PO PRN (10:00)
[2023-08-10] MEDS ORDERED: CYCLOBENZAPRINE HCL 10 MG TABLET (FLEXERIL) PO PRN (10:00)
[2023-08-10] MEDS ORDERED: ACETAMINOPHEN 325 MG TABLET PO PRN ×2 (10:00→10:45)
[2023-08-10 11:09] LABS: BASOPHILS # (AUTO) 0.1 K/uL (0.0-0.2); BASOPHILS % (AUTO) 0.9 % (0.0-2.0); EOSINOPHILS # (AUTO) 0.1 K/uL (0.0-0.4); EOSINOPHILS % (AUTO) 0.7 % (0.0-4.0); HEMATOCRIT 32.5 % (36-48); HEMOGLOBIN 10.5 g/dL (12.0-16.0); LYMPHOCYTES # (AUTO) 0.8 K/uL (1.0-5.5); LYMPHOCYTES % (AUTO) 10.6 % (20.5-51.5); MEAN CORPUSCULAR HEMOGLOBIN 31 pg (27-31); MEAN CORPUSCULAR HGB CONC 32 % (32-36); MEAN CORPUSCULAR VOLUME 96 fL (79.0-98.0); MONOCYTES # (AUTO) 0.3 K/uL (0.0-1.0); MONOCYTES % (AUTO) 3.8 % (1.7-9.3); NEUTROPHILS # (AUTO) 6.4 K/uL (1.8-7.7); PLATELET COUNT (AUTO) 329 K/uL (130-430); RED BLOOD CELL COUNT(AUTO) 3.38 MIL/uL (4.2-6.2); RED CELL DISTRIBUTION WIDTH 15.8 % (9.0-15.0); WHITE BLOOD COUNT (AUTO) 7.6 K/uL (4.8-10.8)
[2023-08-10 11:15] LABS: CALCIUM 8.1 mg/dL (8.4-11.0); CREATININE 0.99 mg/dL (0.55-1.30); POTASSIUM 3.8 mmol/L (3.5-5.1)
[2023-08-10] MEDS: HYDROcodone/ACETAMIN 5-325 MG TAB (NORCO/ VICODIN) PO PRN (11:36)
[2023-08-10 11:45] VITALS: BP_SYST 104; PULSE 93; RESP 18; TEMP 98.6; O2SAT 98
[2023-08-10] MEDS: GABAPENTIN 300 MG CAPSULE PO SCH ×2 (16:02→20:24)
[2023-08-10] MEDS: NACL 0.9% 1,000 ML IV SCH ×2 (16:04→20:25)
[2023-08-10 17:08] VITALS: BP_SYST 105; PULSE 85; RESP 17; TEMP 99; O2SAT 100
[2023-08-10 20:00] VITALS: BP_SYST 106; PULSE 97; RESP 17; TEMP 97.6; O2SAT 100
[2023-08-10] MEDS: DICYCLOMINE HCL 10 MG CAPSULE PO SCH (20:24)
[2023-08-10] MEDS: PANTOPRAZOLE SODIUM 40 MG TAB PO SCH (20:24)
[2023-08-10] MEDS: MIRTAZAPINE 15 MG TABLET PO SCH (20:24)
[2023-08-11] VITALS (8 sets, daily range): BP systolic 98–113; PULSE 105–112; RESP 18–20; TEMP 97.1–98.4; O2SAT 97–100
[2023-08-11 05:09] LABS: BASOPHILS % (AUTO) 0.4 % (0.0-2.0); EOSINOPHILS # (AUTO) 0.2 K/uL (0.0-0.4); EOSINOPHILS % (AUTO) 1.8 % (0.0-4.0); HEMATOCRIT 28.8 % (36-48); HEMOGLOBIN 9.5 g/dL (12.0-16.0); LYMPHOCYTES % (AUTO) 10.7 % (20.5-51.5); MEAN CORPUSCULAR HEMOGLOBIN 32 pg (27-31); MEAN CORPUSCULAR HGB CONC 33 % (32-36); MEAN CORPUSCULAR VOLUME 96 fL (79.0-98.0); MONOCYTES # (AUTO) 0.5 K/uL (0.0-1.0); MONOCYTES % (AUTO) 5.1 % (1.7-9.3); NEUTROPHILS # (AUTO) 7.6 K/uL (1.8-7.7); PLATELET COUNT (AUTO) 287 K/uL (130-430); RED CELL DISTRIBUTION WIDTH 15.9 % (9.0-15.0); WHITE BLOOD COUNT (AUTO) 9.3 K/uL (4.8-10.8)
[2023-08-11] MEDS: NACL 0.9% 1,000 ML IV SCH ×2 (05:20→15:38)
[2023-08-11 05:58] LABS: CALCIUM 7.8 mg/dL (8.4-11.0); CREATININE 0.81 mg/dL (0.55-1.30); PHOSPHORUS 2.2 mg/dL (2.7-4.5)
[2023-08-11 07:01] LABS: POTASSIUM 2.9 mmol/L (3.5-5.1)
[2023-08-11] MEDS ORDERED: FLAXSEED OIL 1200 MG PO SCH (09:00)
[2023-08-11] MEDS ORDERED: POTASSIUM CHLORIDE 40 MEQ, LIDOCAINE JECT 2% PF 100 MG 50 MG in NS 250 ML IV ONE (09:30)
[2023-08-11] MEDS: CHOLECALCIFEROL (VITAMIN D3) 5,000 UNIT TABLET PO SCH (10:44)
[2023-08-11] MEDS: PANTOPRAZOLE SODIUM 40 MG TAB PO SCH ×2 (10:44→21:37)
[2023-08-11] MEDS: DICYCLOMINE HCL 10 MG CAPSULE PO SCH ×2 (10:44→21:39)
[2023-08-11] MEDS: GABAPENTIN 300 MG CAPSULE PO SCH ×3 (10:44→21:37)
[2023-08-11] MEDS: glipiZIDE XL 2.5 MG/TAB (GLUCOTROL XL) PO SCH (10:45)
[2023-08-11] MEDS ORDERED: K PHOS 30 MM in NS 250 ML IV ONE (13:30)
[2023-08-11] MEDS: HYDROcodone/ACETAMIN 5-325 MG TAB (NORCO/ VICODIN) PO PRN (15:44)
[2023-08-11 17:14] LABS: CALCIUM 7.8 mg/dL (8.4-11.0); CREATININE 0.87 mg/dL (0.55-1.30); POTASSIUM 4.6 mmol/L (3.5-5.1)
[2023-08-11] MEDS: MIRTAZAPINE 15 MG TABLET PO SCH (21:37)
[2023-08-12] MEDS: NACL 0.9% 1,000 ML IV SCH (02:28)
[2023-08-12 05:19] LABS: BASOPHILS # (AUTO) 0.1 K/uL (0.0-0.2); BASOPHILS % (AUTO) 0.7 % (0.0-2.0); EOSINOPHILS # (AUTO) 0.2 K/uL (0.0-0.4); EOSINOPHILS % (AUTO) 2.9 % (0.0-4.0); HEMATOCRIT 30.6 % (36-48); HEMOGLOBIN 9.9 g/dL (12.0-16.0); LYMPHOCYTES % (AUTO) 28.3 % (20.5-51.5); MEAN CORPUSCULAR HEMOGLOBIN 31 pg (27-31); MEAN CORPUSCULAR HGB CONC 32 % (32-36); MEAN CORPUSCULAR VOLUME 96 fL (79.0-98.0); MONOCYTES # (AUTO) 0.4 K/uL (0.0-1.0); MONOCYTES % (AUTO) 6.2 % (1.7-9.3); NEUTROPHILS # (AUTO) 4.4 K/uL (1.8-7.7); NEUTROPHILS % (AUTO) 61.9 % (40.0-70.0); PLATELET COUNT (AUTO) 289 K/uL (130-430); RED BLOOD CELL COUNT(AUTO) 3.19 MIL/uL (4.2-6.2); RED CELL DISTRIBUTION WIDTH 15.4 % (9.0-15.0); WHITE BLOOD COUNT (AUTO) 7.1 K/uL (4.8-10.8)
[2023-08-12 05:39] LABS: CALCIUM 7.9 mg/dL (8.4-11.0); CREATININE 0.84 mg/dL (0.55-1.30); POTASSIUM 3.5 mmol/L (3.5-5.1)
[2023-08-12 08:00] VITALS: BP_SYST 110; PULSE 90; RESP 17; TEMP 97.5; O2SAT 99
[2023-08-12] MEDS: PANTOPRAZOLE SODIUM 40 MG TAB PO SCH (08:54)
[2023-08-12] MEDS: GABAPENTIN 300 MG CAPSULE PO SCH (08:54)
[2023-08-12] MEDS: glipiZIDE XL 2.5 MG/TAB (GLUCOTROL XL) PO SCH (08:54)
[2023-08-12] MEDS: CHOLECALCIFEROL (VITAMIN D3) 5,000 UNIT TABLET PO SCH (08:54)
[2023-08-12] MEDS: DICYCLOMINE HCL 10 MG CAPSULE PO SCH (08:54)
[2023-08-12] MEDS ORDERED: MEGE400O17 PO (10:03)
[2023-08-12 14:11] VITALS: BP_SYST 110; PULSE 90; RESP 17; TEMP 97.5; O2SAT 99
== END 2023-08-12 14:41 | disposition home health service (06) | DRG 682 ==
LOC: SED 16:49 → SMU 22:09
PROVIDERS: ADMIT Preventive Medicine Preventive Medicine/Occupational Environmental Medicine; ATTEND Preventive Medicine Preventive Medicine/Occupational Environmental Medicine
DX: N17.0 Acute kidney failure with tubular necrosis (principal); R65.11 Systemic inflammatory response syndrome (SIRS) of non-infectious origin with acute organ dysfunction; E44.0 Moderate protein-calorie malnutrition; Z68.1 Body mass index [BMI] 19.9 or less, adult; E87.1 Hypo-osmolality and hyponatremia; E86.0 Dehydration; M81.0 Age-related osteoporosis without current pathological fracture; M79.7 Fibromyalgia; I87.8 Other specified disorders of veins; E83.39 Other disorders of phosphorus metabolism; K21.9 Gastro-esophageal reflux disease without esophagitis; D64.9 Anemia, unspecified; R74.01 Elevation of levels of liver transaminase levels; G89.4 Chronic pain syndrome; E11.65 Type 2 diabetes mellitus with hyperglycemia; E83.52 Hypercalcemia; E78.5 Hyperlipidemia, unspecified; G47.00 Insomnia, unspecified; Z87.441 Personal history of nephrotic syndrome; Z87.442 Personal history of urinary calculi; Z90.710 Acquired absence of both cervix and uterus; Z88.8 Allergy status to other drugs, medicaments and biological substances; Z91.040 Latex allergy status; Z79.899 Other long term (current) drug therapy
CPT/HCPCS: 36415; 71045; 80048; 80076; 82962; 83735; 83880; 84100; 84443; 84484; 85025; 85379; 92610-GN; 93005; 96360; 99285; J3480; J7050